=== PATIENT | female | born 1975 | race Caucasian/White ===

== ENCOUNTER 2023-09-30 23:51 | Emergency (ER) | payer OTHER, SELFPAY ==
[2023-10-01 00:13] VITALS: BP 135/95
[2023-10-01 01:17] VITALS: BP 137/95
[2023-10-01 01:43] LABS: % Basophils 1.1 % (0-2); % Eosinophils 0.8 % (0-6); % Immature Granulocytes 0.5 % (0-0.5); % Lymphocytes 16.4 % (20.5-51.1); % Neutrophils 68.2 % (42.2-75.2); Absolute Basophils 0.1 10^3/uL (0-0.2); Absolute Eosinophils 0.1 10^3/uL (0-0.7); Absolute Immature Granulocytes 0.1 10^3/uL (0-0.05); Absolute Lymphocytes 1.6 10^3/uL (1.2-3.4); Absolute Monocytes 1.3 10^3/uL (0.1-0.6); Absolute Neutrophils 6.5 10^3/uL (1.4-6.5); Hematocrit 33.6 % (37.0-47.0); Hemoglobin 11.5 g/dL (12.0-16.0); Mean Corp Hgb Conc. 34.2 g/dL (33.0-37.0); Mean Corpuscular Hgb 36.1 pg (27.0-31.0); Mean Corpuscular Volume 105.3 fL (81.0-99.0); Mean Platelet Volume 9.3 fL (7.4-10.4); Nucleated Red Blood Cells % 0 %; Platelet Count 545 10^3/uL (130-400); Red Blood Cell Count 3.19 10^6/uL (4.20-5.40); White Blood Cell Count 9.6 10^3/uL (4.8-10.8)
[2023-10-01 01:54] LABS: INR 1.04; PT 13.8 Sec (11.4-14.6)
[2023-10-01 01:56] LABS: ALT (SGPT) 47 U/L (0-35); AST (SGOT) 145 U/L (14-36); Albumin 2.6 g/dl (3.5-5.0); Alkaline Phosphatase 269 U/L (38-126); Blood Urea Nitrogen 4 mg/dl (7-17); Calcium 8.3 mg/dl (8.4-10.2); Carbon Dioxide 24 mmol/L (22-30); Chloride 103 mmol/L (98-107); Glucose 103 mg/dl (70-99); Potassium 4.2 mmol/L (3.5-5.1); Sodium 131 mmol/L (135-145); Total Bilirubin 2.3 mg/dl (0.2-1.3); Total Protein 5.6 g/dl (6.3-8.2); eGFR > 60.00
[2023-10-01 02:00] VITALS: BP 138/97
[2023-10-01 02:05] LABS: NT-proBNP 83.2 pg/ml
--- NOTE | 2023-10-01 02:42 | ED.GENMED ---
History of Present Illness
General
Chief Complaint: Swelling
Source: patient, spouse and previous hospital records
Exam Limitations: none
Time Seen by Provider: 10/01/23 02:30
Nursing documentation reviewed up to this point in time: agreed with
Travel History
Have you had any contact with someone who has COVID-19?: No
Do you have any symptoms of coronavirus? Fever > 100 degrees, chills, cough, shortness of breath, sore throat, loss of taste or smell, muscle aches, or headache?: Yes
Symptoms:: cough
History of Present Illness
History of Present Illness:
48-year-old female presents emergency department complaining of increased swelling in her feet and lower legs over the past 2 days. She also reports a moist cough for 3 days. She also reports left outer thigh pain. Recent admission for ascites
where she had paracentesis performed.
Past History
Past History
ED Past Medical History: Other
ED Past Surgical History: Other (Hernia repair )
Social History
Tobacco: Non-smoker
Alcohol: None
Personal:
Living: with family
Employment: Not employed
Review of Systems
Review of Systems
Allergies reviewed?: Yes
All Other Systems: Not applicable
Constitutional: Reports no symptoms
EENT: Reports no symptoms
Respiratory: Reports cough
Cardiac: Reports no symptoms
ABD/GI: Reports other (Abdominal swelling)
: Reports no symptoms
Musculoskeletal: Reports edema
Skin: Reports no symptoms
Neurological: Reports no symptoms
Endocrine: Reports no symptoms
Hematologic/Lymphatic: Reports no symptoms
Psychiatric: Reports no symptoms
Phy Exam
Physical Exam
Physical Exam:
Physical Exam
General: no apparent distress, not acutely ill
Neck: supple. no meningeal signs. normal posterior pharynx
Heart: s1/s2 regular rate and rhythm, no murmur. equal radial
pulses.
HEENT: Pupils equal round reactive to light, EOMI
Lungs: no acute respiratory distress. clear bilaterally
Abdomen: normal bowel sounds. not tender. no CVAT, ascites
Neuro: alert and oriented. no focal neurological deficits cranial nerves II through XII intact
Skin: no rash
Psychiatric: well kept. interactive and cooperative
Extremities: Bilateral lower leg edema. no calf tenderness. negative homans. good distal pulses
Scores
Heart Failure Risk
Heart Failure Risk Score: Not Applicable
Course
Orders/Labs/Results
Orders:
Orders
10/01/23 01:33
CXR2 [CR Chest - 2 Views ] Urgent
Comment:
Reason For Exam: cough
10/01/23 01:36
Complete Blood Count/With Diff Urgent
Comprehensive Metabolic Panel Urgent
NT-proBNP Urgent
Prothrombin Time Urgent
10/01/23 02:41
Lumbar Spine Complete, 4 View [CR Lumbar Spine Comp Min 4 Vw*] Urgent
Comment:
Reason For Exam: low back pain
US Periph Venous LOWER Ext Mateus Urgent
Comment:
Reason For Exam: bilateral leg swelling
10/01/23 05:51
Lidocaine [Lidocaine 4% Patch] 1 patch TOPICAL NOW STA
Abnormal Lab Results
10/01/23
01:36
RBC 3.19 L 10^6/uL
(4.20-5.40)
Hgb 11.5 L g/dL
(12.0-16.0)
Hct 33.6 L %
(37.0-47.0)
MCV 105.3 H fL
(81.0-99.0)
MCH 36.1 H pg
(27.0-31.0)
RDW 15.0 H %
(11.5-14.5)
Plt Count 545 H 10^3/uL
(130-400)
Abs Immat Gran (auto) 0.1 H 10^3/uL
(0-0.05)
Absolute Monos (auto) 1.3 H 10^3/uL
(0.1-0.6)
Lymphocytes % 16.4 L %
(20.5-51.1)
Monocytes % 13.0 H %
(1.7-9.3)
Sodium 131 L mmol/L
(135-145)
BUN 4 L mg/dl
(7-17)
Creatinine 0.3 L mg/dL
(0.6-1.0)
Glucose 103 H mg/dl
(70-99)
Calcium 8.3 L mg/dl
(8.4-10.2)
Total Bilirubin 2.3 H mg/dl
(0.2-1.3)
AST 145 H U/L
(14-36)
ALT 47 H U/L
(0-35)
Alkaline Phosphatase 269 H U/L
(38-126)
Total Protein 5.6 L g/dl
(6.3-8.2)
Albumin 2.6 L g/dl
(3.5-5.0)
10/01/23 01:36
10/01/23 01:36
Vital Signs
Initial and Last Documented VS:
Initial Vital Signs
Temp Pulse Resp BP Pulse Ox
98.3 F 94 20 135/95 97
10/01/23 00:13 10/01/23 00:13 10/01/23 00:13 10/01/23 00:13 10/01/23 00:13
Last Documented Vital Signs
Temp Pulse Resp BP Pulse Ox
98.3 F 86 20 138/97 95
10/01/23 00:13 10/01/23 02:00 10/01/23 00:13 10/01/23 02:00 10/01/23 02:00
MDM/Problems Addressed
Differential Diagnosis Includes:
CHF, DVT, ascites
MDM/Problems Addressed:
48-year-old female with ascites, bilateral lower extremity edema. 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
*Radiology
Radiology exam reviewed: preliminary read by ED provider (Chest x-ray no acute findings, lumbar x-ray no acute findings) and radiology read reviewed (Ultrasound no signs of DVT, possible strain)
*Pulse Oximetry
Patient hypoxic: no
*EKG
Interpreted by ED Provider?: NA
*Slab Installer Interpretation
Rate: Slab Installer- N/A
*Critical Care Note
Total Time (30-74mins, 75-104mins- exclusive of procedures): Not Applicable
Data Reviewed
Further Testing Considered But Not Given:
CT abdomen pelvis not indicated
Patient Management
Social determinants of health affecting care: Living situation and Strong social support
Escalation/DeEscalation of care consider admission/obs:
Admit not indicated
ED Attending Note
-
Portions of this chart may have been created with voice recognition software.� Occasional wrong word or��sound alike� substitutions may have occurred due to the inherent limitations of voice recognition software.
Discharge Plan
Departure
Patient Disposition: Home (Routine Discharge)
Date of Disposition: 10/01/23
Time of Disposition: 05:51
Patient with high blood pressure during this ER visit?: Yes
Condition: Good
Discharge Problem:
Bilateral edema of lower extremity, Elevated LFTs, Ascites
Prescriptions:
No Action
Centrum Adult 50 Plus 80 mcg Tablet,Chewable
2 tab PO DAILY
folic acid 1 mg Tablet
1 mg PO DAILY 30 Days Qty: 30 0RF
Referrals:
Palmer Mock MD [Active] - Call in 1-3 days for appt
Joe Mckinney MD [Family Provider] -
Malia Juan, DO [Active] - Call in 1-3 days for appt
Interventions
Interventions:
*Risk Screen - Suicide Last Done: 10/01/23 00:13
*General Assessment Last Done: 10/01/23 00:13
*Neglect/Abuse Screening Last Done: 10/01/23 00:13
ED- Fall Risk Assessment Last Done: 10/01/23 00:13
*ED COVID-19 Vaccine History Last Done: 10/01/23 00:13
*Nursing Disposition Last Done: 10/01/23 06:27
ED- Cardiac Assessment Last Done: 10/01/23 02:38
ED- Pulmonary Assessment Last Done: 10/01/23 02:38
ED-Skin Assessment Last Done: 10/01/23 02:38
Discharge Date and Time
Discharge Date/Time: 10/01/23 06:28
[2023-10-01] MEDS: LIDOCAINE 4% PATCH 1 PATCH TOPICAL (06:09)
== END 2023-10-01 06:28 | disposition home or self-care (01) ==
LOC: EMR 23:51
PROVIDERS: EMERGENCY PHYSICIAN Emergency Medicine; FAMILY PHYSICIAN Family Medicine
DX: R60.0 Localized edema (principal); R79.89 Other specified abnormal findings of blood chemistry
CPT/HCPCS: 99284; 71046; 72110; 80053; 83880; 85025; 85610; 93970

== ENCOUNTER → 2023-10-16 06:29 | Day surgery (SDC) | payer OTHER, SELFPAY | LOC: GI 06:29 | PROVIDERS: ATTENDING PHYSICIAN Internal Medicine; FAMILY PHYSICIAN Family Medicine | DX: K29.70 Gastritis, unspecified, without bleeding (principal); K74.60 Unspecified cirrhosis of liver; R63.4 Abnormal weight loss; K44.9 Diaphragmatic hernia without obstruction or gangrene; K22.89 Other specified disease of esophagus; K25.9 Gastric ulcer, unspecified as acute or chronic, without hemorrhage or perforation; K31.89 Other diseases of stomach and duodenum | CPT/HCPCS: 43239; 88305; 88342 ==

== ENCOUNTER → 2025-02-04 16:57 | Outpatient (REF) | payer BC, SELFPAY | LOC: RAD 16:57 | PROVIDERS: ATTENDING PHYSICIAN Physician Assistant | DX: R22.30 Localized swelling, mass and lump, unspecified upper limb (principal) | CPT/HCPCS: 76604 ==

== ENCOUNTER 2025-07-11 17:52 | Inpatient (IN) | payer BC, SELFPAY ==
[2025-07-11 11:26] VITALS: BP 100/68
[2025-07-11 12:38] VITALS: BP 118/80
--- NOTE | 2025-07-11 12:39 | ED.GENMED ---
History of Present Illness
<Rustam June PA-C - Last Filed: 07/11/25 16:31>
General
Chief Complaint: Back Pain
Source: patient
Exam Limitations: none
Time Seen by Provider: 07/11/25 12:21
History of Present Illness
History of Present Illness:
49-year-old female presents with worsening lower back pain abdominal distention and jaundice starting 5 or 6 days ago. She follows with GI. She is on spironolactone and Aldactone. She notes that she has a history of a ascites of which required
paracentesis 2 years ago. She denies fever or significant abdominal pain. She denies chest pain or shortness of breath. No other complaint
Past History
<JAYLYN Brewer Last Filed: 07/11/25 16:31>
Past History
ED Past Medical History: Other
ED Past Surgical History: Other (Hernia repair )
Social History
Tobacco: Non-smoker
Alcohol: None
Personal:
Living: with family
Employment: Not employed
Phy Exam
<JAYLYN Brewer Last Filed: 07/11/25 16:31>
Physical Exam
Physical Exam:
General: Jaundiced appearing female no acute respiratory distress HEENT: Normal cephalic atraumatic
Heart tachycardic but regular
Lungs: Clear no wheeze
Abdomen is soft mildly tender distended with positive fluid wave
Skin is jaundiced no rash musculoskeletal exam: Lower lumbar spine is tender Bilaterally
Course
<JAYLYN Brewer Last Filed: 07/11/25 16:31>
Orders/Labs/Results
Orders:
Orders
07/11/25 12:33
US Abdomen Complete/Upper Urgent
Comment:
Reason For Exam: distention, jaundice
07/11/25 12:50
Complete Blood Count/With Diff Urgent
PTT Urgent
Prothrombin Time Urgent
07/11/25 14:07
Electrocardiogram (*1) Urgent
Reason for Study: Abdominal Pain
EKG- Treatment ONCE
07/11/25 14:40
Comprehensive Metabolic Panel Urgent
Urinalysis Reflex To Culture Urgent
Date Specimen was Collected: 07/11/25
Time Specimen was Collected: 13:19
Urine Microscopic Reflex Cult Urgent
Urine Culture Urgent
NAEL Source: U
Specimen Description:
Date Specimen was Collected: 07/11/25
Time Specimen was Collected: 13:19
07/11/25 16:14
Add On- LAB Urgent
Tests Added?: lipase
07/11/25 16:15
Add On- LAB Urgent
Tests Added?: urine sodium, urine OSM, serum osmolality
CefTRIAXone [Rocephin] 1,000 mg IV NOW STA
07/11/25 16:16
Potassium Chloride [KCl] 40 meq 0.9% Sodium Chloride 250 ml [Nss] 250 ml IV NOW
Abnormal Lab Results
07/11/25 07/11/25
12:50 14:40
RBC 2.55 L 10^6/uL
(4.20-5.40)
Hgb 10.2 L g/dL
(12.0-16.0)
Hct 28.6 L %
(37.0-47.0)
MCV 112.2 H fL
(81.0-99.0)
MCH 40.0 H pg
(27.0-31.0)
RDW 16.8 H %
(11.5-14.5)
Abs Immat Gran (auto) 0.1 H 10^3/uL
(0-0.05)
Absolute Neuts (auto) 7.6 H 10^3/uL
(1.4-6.5)
Absolute Monos (auto) 1.5 H 10^3/uL
(0.1-0.6)
Immature Gran % 1.3 H %
(0-0.5)
Lymphocytes % 11.0 L %
(20.5-51.1)
Monocytes % 14.1 H %
(1.7-9.3)
Sodium 124 L mmol/L
(135-145)
Potassium 2.8 L mmol/L
(3.5-5.1)
Chloride 84 L mmol/L
(98-107)
Carbon Dioxide 35 H mmol/L
(22-30)
BUN 4 L mg/dl
(7-17)
Creatinine 0.4 L mg/dL
(0.6-1.0)
Glucose 107 H mg/dl
(70-99)
Total Bilirubin 14.2 H mg/dl
(0.2-1.3)
AST 168 H U/L
(14-36)
ALT 53 H U/L
(0-35)
Alkaline Phosphatase 499 H U/L
(38-126)
Albumin 3.2 L g/dl
(3.5-5.0)
Urine Ketones 2+ A
(Negative)
Ur Occult Blood Reflex 2+ A
(Negative)
Urine Nitrite (Reflex) Positive A
(Negative)
Urine Bilirubin 3+ A
(Negative)
Urine Urobilinogen 4+ A
(Neg - 1+)
Leukocyte Esterase Rfl 2+ A
(Negative)
Urine Bacteria (Reflex) Many A
(Negative)
Urine Albumin (Reflex) 2+ A
(Neg - Trace)
07/11/25 12:50
07/11/25 14:40
Vital Signs
Initial and Last Documented VS:
Initial Vital Signs
Temp Pulse Resp BP Pulse Ox
99.0 F 132 18 100/68 96
07/11/25 11:26 07/11/25 11:26 07/11/25 11:26 07/11/25 11:26 07/11/25 11:26
Last Documented Vital Signs
Temp Pulse Resp BP Pulse Ox
98.2 F 114 22 113/70 94
07/11/25 14:00 07/11/25 16:15 07/11/25 16:15 07/11/25 16:00 07/11/25 16:00
<Michael Coronado, DO - Last Filed: 07/11/25 16:18>
Orders/Labs/Results
Orders:
Orders
07/11/25 12:33
US Abdomen Complete/Upper Urgent
Comment:
Reason For Exam: distention, jaundice
07/11/25 12:50
Complete Blood Count/With Diff Urgent
PTT Urgent
Prothrombin Time Urgent
07/11/25 14:07
Electrocardiogram (*1) Urgent
Reason for Study: Abdominal Pain
EKG- Treatment ONCE
07/11/25 14:40
Comprehensive Metabolic Panel Urgent
Urinalysis Reflex To Culture Urgent
Date Specimen was Collected: 07/11/25
Time Specimen was Collected: 13:19
Urine Microscopic Reflex Cult Urgent
Urine Culture Urgent
NAEL Source: U
Specimen Description:
Date Specimen was Collected: 07/11/25
Time Specimen was Collected: 13:19
07/11/25 16:14
Add On- LAB Urgent
Tests Added?: lipase
07/11/25 16:15
Add On- LAB Urgent
Tests Added?: urine sodium, urine OSM, serum osmolality
CefTRIAXone [Rocephin] 1,000 mg IV NOW STA
07/11/25 16:16
Potassium Chloride [KCl] 40 meq 0.9% Sodium Chloride 250 ml [Nss] 250 ml IV NOW
Abnormal Lab Results
07/11/25 07/11/25
12:50 14:40
RBC 2.55 L 10^6/uL
(4.20-5.40)
Hgb 10.2 L g/dL
(12.0-16.0)
Hct 28.6 L %
(37.0-47.0)
MCV 112.2 H fL
(81.0-99.0)
MCH 40.0 H pg
(27.0-31.0)
RDW 16.8 H %
(11.5-14.5)
Abs Immat Gran (auto) 0.1 H 10^3/uL
(0-0.05)
Absolute Neuts (auto) 7.6 H 10^3/uL
(1.4-6.5)
Absolute Monos (auto) 1.5 H 10^3/uL
(0.1-0.6)
Immature Gran % 1.3 H %
(0-0.5)
Lymphocytes % 11.0 L %
(20.5-51.1)
Monocytes % 14.1 H %
(1.7-9.3)
Sodium 124 L mmol/L
(135-145)
Potassium 2.8 L mmol/L
(3.5-5.1)
Chloride 84 L mmol/L
(98-107)
Carbon Dioxide 35 H mmol/L
(22-30)
BUN 4 L mg/dl
(7-17)
Creatinine 0.4 L mg/dL
(0.6-1.0)
Glucose 107 H mg/dl
(70-99)
Total Bilirubin 14.2 H mg/dl
(0.2-1.3)
AST 168 H U/L
(14-36)
ALT 53 H U/L
(0-35)
Alkaline Phosphatase 499 H U/L
(38-126)
Albumin 3.2 L g/dl
(3.5-5.0)
Urine Ketones 2+ A
(Negative)
Ur Occult Blood Reflex 2+ A
(Negative)
Urine Nitrite (Reflex) Positive A
(Negative)
Urine Bilirubin 3+ A
(Negative)
Urine Urobilinogen 4+ A
(Neg - 1+)
Leukocyte Esterase Rfl 2+ A
(Negative)
Urine Bacteria (Reflex) Many A
(Negative)
Urine Albumin (Reflex) 2+ A
(Neg - Trace)
07/11/25 12:50
07/11/25 14:40
Vital Signs
Initial and Last Documented VS:
Initial Vital Signs
Temp Pulse Resp BP Pulse Ox
99.0 F 132 18 100/68 96
07/11/25 11:26 07/11/25 11:26 07/11/25 11:26 07/11/25 11:26 07/11/25 11:26
Last Documented Vital Signs
Temp Pulse Resp BP Pulse Ox
98.2 F 114 22 113/70 94
07/11/25 14:00 07/11/25 16:15 07/11/25 16:15 07/11/25 16:00 07/11/25 16:00
Dclt;Rustam June PA-C - Last Filed: 07/11/25 16:31>
MDM/Problems Addressed
Differential Diagnosis Includes:
Patient with lower back pain abdominal distention and jaundice.
Review of chart demonstrates unspecified cirrhosis history.
Workup here demonstrates hyponatremia with a sodium of 124. She is hypokalemic with potassium of 2.8. Urinalysis suggests UTI. Patient had an ultrasound of her abdomen which shows severe hepatic steatosis
Will admit to hospital for further evaluation. Clinically she does appear to have some ascites on exam but none was picked up on the ultrasound
<Rustam June PA-C - Last Filed: 07/11/25 16:31>
*Pulse Oximetry
SaO2: 96
Patient hypoxic: no
*Critical Care Note
Total Time (30-74mins, 75-104mins- exclusive of procedures): Not Applicable
ED Attending Note
<Rustam June PA-C - Last Filed: 07/11/25 16:31>
-
Portions of this chart may have been created with voice recognition software.� Occasional wrong word or��sound alike� substitutions may have occurred due to the inherent limitations of voice recognition software.
<Michael Coronado DO - Last Filed: 07/11/25 16:18>
ED Attending Note
Patient seen and examined by attending physician: Yes
I performed the substantive portion of visit, reviewed & personally made and approve the management plan that is documented in note by myself or GAURAV.: Yes
ED Attending Note:
I have seen and evaluated the patient with a [id number] encounter. I have spoken to the advance practicer provider and involved in the medical history, the physical exam, medical decision making.
Evaluation and management service: agree unless noted differently below.
Results interpretation: agree unless noted differently below.
Focused HPI: 49-year-old female presenting for evaluation of enlarging abdomen. Patient is a history of liver disease that required paracentesis 2 years ago. Patient states the jaundice is returning and the distention is returning as well
Physical exam: Jaundice. Abdominal distention without tenderness
Medical Decision Making: Clinically, patient is showing concern for return of ascites. Patient has elevated LFTs but coags within normal limits. Will ultimately admit for worsening liver failure
Discharge Plan
Departure
Patient Disposition: Admit
Date of Disposition: 07/11/25
Time of Disposition: 16:28
Presentation/result/management discussed w/ accepting MD/DO: Hospitalist
Discharge Problem:
Ascites, Acute hyponatremia, Acute hypokalemia
Prescriptions:
No Action
Centrum Adult 50 Plus 80 mcg Tablet,Chewable
2 tab PO DAILY
folic acid 1 mg Tablet
1 mg PO DAILY 30 Days Qty: 30 0RF
Referrals:
Heidy Marcano CRNP [Family Provider, Family Practice]
Interventions
Interventions:
*Risk Screen - Suicide Last Done: 07/11/25 11:29
*General Assessment Last Done: 07/11/25 11:29
*Neglect/Abuse Screening Last Done: 07/11/25 11:29
ED-Musculoskeletal Assessment Last Done: 07/11/25 12:53
Discharge Date and Time
Print Language: GERMAN
[2025-07-11 12:56] LABS: Hematocrit 28.6 % (37.0-47.0); Hemoglobin 10.2 g/dL (12.0-16.0); Mean Corp Hgb Conc. 35.7 g/dL (33.0-37.0); Mean Corpuscular Volume 112.2 fL (81.0-99.0); Nucleated Red Blood Cells % 0.2 %; Platelet Count 277 10^3/uL (130-400); Red Cell Dist. Width 16.8 % (11.5-14.5)
[2025-07-11 13:13] LABS: APTT 30.2 Sec (23.4-35.0); INR 1.05; PT 14.0 Sec (11.4-14.6)
[2025-07-11 14:34] VITALS: BP 118/71
[2025-07-11 14:56] LABS: Urine Character Clear (Clear)
[2025-07-11 15:00] VITALS: BP 122/79
[2025-07-11 15:04] LABS: ALT (SGPT) 53 U/L (0-35); AST (SGOT) 168 U/L (14-36); Albumin 3.2 g/dl (3.5-5.0); Alkaline Phosphatase 499 U/L (38-126); Blood Urea Nitrogen 4 mg/dl (7-17); Calcium 8.6 mg/dl (8.4-10.2); Carbon Dioxide 35 mmol/L (22-30); Chloride 84 mmol/L (98-107); Estimated Creatinine Clearance 102 ml/min; Glucose 107 mg/dl (70-99); Potassium 2.8 mmol/L (3.5-5.1); Sodium 124 mmol/L (135-145); Total Protein 6.6 g/dl (6.3-8.2); Urine Squamous Cell >30 /LPF (Few); eGFR > 60.00
[2025-07-11 15:05] LABS: Urine Red Blood Cell 0-2 /HPF (0-2)
[2025-07-11 16:00] VITALS: BP 113/70
--- NOTE | 2025-07-11 16:32 | HPS.HSE ---
Addendum entered and electronically signed by Nicki Griffith MD 07/11/25 20:39:
urine sodium low, will therefore start NS @ 50 and change follow up labs to [place]
Original Note:
Family Physician
-
Family Physician: SHIVA Aaron
Chief Complaint
-
abdominal distention, jaundice
History of Present Illness
Ms. Cristina Morley is a 49 yo woman with hx anxiety, GERD, alcohol related liver disease presents to the ER with worsening lower back pain, abdominal distention and jaundice.
Patient states she noticed these symptoms on Monday. She has become progressively jaundiced. She was concerned for fluid in the belly as this is how she presented last time. No significant pain. No fevers/chills. No chest pain or shortness of
breath. She is eating and drinking normally, states she drinks a lot of water throughout the day. No significant lower extremity swelling. She's been having normal BM, no diarrhea. No nausea/vomiting.
She has been having lower back pain over the past week. has been applying ice at home. No bowel/bladder changes, no saddle anesthesia. She is maneuvering around the bed without issue during exam. No LE weakness.
Patient stopped drinking heavily. She reports intermittently having a glass of wine, she had one glass on Monday when out to dinner.
She reports burning with urination over the past week.
Medical History
Past Medical History
Past Medical History: Reports Other (alcohol use, tobacco use, HTN, alcoholic hepatitis )
Past Surgical History: Reports Other (hernia repair )
Social History
Tobacco: Non-smoker
Alcohol: Occasional
Family History
Family History: Not pertinent
Allergies / Home Medications
Allergies reflects when Allergies were last updated in [employer].
Home Medications with original date entered in [employer]
Allergy/Medication List:
Allergies
Allergy/AdvReac Type Severity Reaction Status Date / Time
No Known Allergies Allergy Verified 07/11/25 11:28
Home Medications
multivitamin with minerals-folic acid 80 mcg chewable tablet (Centrum Adult 50 Plus) 2 tab PO DAILY Supplement 09/08/23
cholecalciferol (vitamin D3) 25 mcg (1,000 unit) chewable tablet (Vitamin D3) 25 mcg PO DAILY Supplement 07/11/25
furosemide 40 mg tablet (Lasix) 40 mg PO DAILY Fluid Retention/Swelling 07/11/25
propranolol 60 mg capsule,24 hr,extended release 60 mg PO DAILY Heart Disease/Condition 07/11/25
spironolactone 100 mg tablet 50 mg PO DAILY Fluid Retention/Swelling 07/11/25
vitamin A 3,000 mcg (10,000 unit) capsule 3,000 mcg PO DAILY Supplement 07/11/25
Review of Systems
-
History Source: Patient
A 12 point ROS was completed and negative except as noted: Yes
Physical Exam
Vital Signs
Vital Signs
Temp Pulse Resp BP Pulse Ox
98.2 F 114 22 113/70 94
07/11/25 14:00 07/11/25 16:15 07/11/25 16:15 07/11/25 16:00 07/11/25 16:00
Physical Exam
General: No Apparent Distress
HEENT: Other (scleral icterus )
Respiratory: Clear; No Accessory Resp Muscle Use
Cardiac: S1/S2 and Tachycardia
GI: Other (distended, no significant tenderness )
Musculoskeletal: No Edema and Other (no mid-spine tenderness; 5/5 strength LE)
Skin: Warm, Dry and Jaundice
Neuro: AO x 3
Psych: Calm
Laboratory Results
-
07/11/25 12:50
07/11/25 14:40
Laboratory Results
PT 14.0 Sec (11.4-14.6) 07/11/25 12:50
INR 1.05 07/11/25 12:50
APTT 30.2 Sec (23.4-35.0) 07/11/25 12:50
Total Bilirubin 14.2 mg/dl (0.2-1.3) H 07/11/25 14:40
AST 168 U/L (14-36) H 07/11/25 14:40
ALT 53 U/L (0-35) H 07/11/25 14:40
Alkaline Phosphatase 499 U/L (38-126) H 07/11/25 14:40
Data Reviewed
-
Diagnostic Radiology: Report Reviewed by me
Lab Data: Labs Reviewed by me
Impression/Plan
-
Ms. Cristina Morley is a 49 yo woman with hx anxiety, GERD, alcohol related liver disease presents to the ER with worsening lower back pain, abdominal distention and jaundice.
Triage VS: T 99, P 132, RR 18, BP 100/68, SpO2 98%
LABS: WBC 10.5, Hg 10.2, PLT 277, Na 124, K+ 2.8, CO2 35, BUN 4, Cr 0.4, Glucose 107, T. Bili 14.2, AST 168, ALT 53, Alk Phos 499,Albumin 3.2, INR 1.05
UA positive for nitrite, ketones, 6-10 WBC, > 30 squam
RUQ US
IMPRESSION:
Severe hepatic steatosis.
Negative for cholelithiasis. Nonspecific thickening of the gallbladder wall, possibly reactive.
Nonspecific dilatation of the common bile duct up to 11.2 mm. No intraductal stones identified, noting limited visualization. If there is concern for choledocholithiasis or biliary obstruction, consider further evaluation with MRCP.
Elevated Bilirubin
Hx Alcoholic liver disease/alcoholic hepatitis
Dilated CBD 11.2mm
-Discriminant Function 14.2; < 32 no indication for steroids
-no ascites seen on US (confirmed with Dr. Mock)
-discussed abdominal US findings with GI, hold off on MRI for now - OK for regular diet
-formal GI consult tomorrow
-complete alcohol cessation education
Hyponatremia
-patient reports drinking lots of water throughout the day
-awaiting urine studies
-fluid restrict
-hold DISTRIBUTION DESIGNER Aldactone/Lasix
-Nephrology consult
-repeat Na level at 10PM
Hypokalemia
-40mEq IV ordered in ER
-20mEq PO x 1
-repeat K+ level at 10PM and replete further if necessary
-add on Mag
UTI
-patient reports burning on urination. positive nitrite and leuk esterase
-IV Ceftriaxone
-F/U final culture
Low Back Pain
-no midspine tenderness or weakness on exam. related to UTI? versus likely MSK
-IV antibiotics as above
-trial heat pack
Sinus Tachycardia
-continue DISTRIBUTION DESIGNER Propranolol (patient did not take this morning, resume now)
DVT PPx SCD
FULL CODE
76 minutes spent on patient care
[2025-07-11] MEDS: KCL 20 MEQ PO (17:22)
[2025-07-11] MEDS: ROCEPHIN 1000 MG IV (17:23)
[2025-07-11] MEDS: KCL 270 MEQ IV (17:23)
[2025-07-11] MEDS: INDERAL LA 60 MG PO (18:23)
[2025-07-11 19:00] LABS: Lipase 385 U/L (23-300); Magnesium 1.9 mg/dl (1.6-2.3)
[2025-07-11] MEDS: LIDOCAINE 4% PATCH 1 PATCH TOPICAL (21:14)
[2025-07-11] MEDS: NSS 1000 IV (22:14)
--- NOTE | 2025-07-11 22:31 | PTCARENOTE ---
pt brought up from ED via stretcher. pt ambulated to bed with assistance from staff. patient AOx3. assessment completed. tele monitor placed. oriented to room. call doran within reach. when asked if the patient had fallen in the last 3 months patient
stated yes. patient informed of the need for bed alarm due to history of fall. patient refused bed alarm. patient educated on the importance of bed alarm. patient continued to refuse. education reinforced. POC ongoing.
[2025-07-11] MEDS: TORADOL 15 MG IV (23:00)
[2025-07-11 23:10] VITALS: BP 91/58
[2025-07-12] VITALS (11 sets, daily range): BP systolic 82–128; BP diastolic 42–80
[2025-07-12 00:52] LABS: Potassium 3.4 mmol/L (3.5-5.1); Sodium 128 mmol/L (135-145)
[2025-07-12 00:52] LABS: Hematocrit 24.2 % (37.0-47.0); Hemoglobin 8.2 g/dL (12.0-16.0); Mean Corp Hgb Conc. 33.9 g/dL (33.0-37.0); Mean Corpuscular Volume 114.2 fL (81.0-99.0); Nucleated Red Blood Cells % 0.3 %; Platelet Count 211 10^3/uL (130-400); Red Cell Dist. Width 17.0 % (11.5-14.5)
[2025-07-12] MEDS: NSS 250 IV (01:06)
--- NOTE | 2025-07-12 03:24 | PTCARENOTE ---
patient temperature 101.1. WOOD FLOORING SPECIALIST Tejal Germain notified. new orders for Toradol placed. See MAR for administration. when rechecked pt temperature was 99.9. WOOD FLOORING SPECIALIST messaged this RN later asking how pt was doing. patient was resting at the time and this RN
reported improvement in temperature. WOOD FLOORING SPECIALIST asked what the patients blood pressure was. blood pressure from 2300 VS was 91/58. this RN rechecked a manual blood pressure for 86/42. pt asymptomatic. WOOD FLOORING SPECIALIST came to bedside to assess pt. new orders placed
for IV bolus, see MAR for administration. WOOD FLOORING SPECIALIST added CBC to 0000 lab draw. temp and blood pressure from 0300 VS 97.8 and 128/63.
[2025-07-12 07:51] LABS: Hematocrit 25.1 % (37.0-47.0); Hemoglobin 8.7 g/dL (12.0-16.0); Mean Corp Hgb Conc. 34.7 g/dL (33.0-37.0); Mean Corpuscular Volume 116.2 fL (81.0-99.0); Nucleated Red Blood Cells % 0.2 %; Platelet Count 228 10^3/uL (130-400); Red Cell Dist. Width 17.1 % (11.5-14.5)
[2025-07-12] MEDS: LIDOCAINE 4% PATCH 1 PATCH TOPICAL (07:53)
[2025-07-12] MEDS: DESENEX/MITRAZOL/ZEASORB 1 APPLIC TOPICAL ×2 (07:54→20:14)
[2025-07-12 07:55] LABS: INR 1.13; PT 14.8 Sec (11.4-14.6)
[2025-07-12] MEDS: INDERAL LA PO (07:57)
[2025-07-12 08:26] LABS: ALT (SGPT) 43 U/L (0-35); AST (SGOT) 127 U/L (14-36); Albumin 2.5 g/dl (3.5-5.0); Alkaline Phosphatase 389 U/L (38-126); Blood Urea Nitrogen 4 mg/dl (7-17); Calcium 7.8 mg/dl (8.4-10.2); Carbon Dioxide 32 mmol/L (22-30); Chloride 90 mmol/L (98-107); Estimated Creatinine Clearance 102 ml/min; Glucose 99 mg/dl (70-99); Magnesium 1.8 mg/dl (1.6-2.3); Potassium 3.2 mmol/L (3.5-5.1); Sodium 127 mmol/L (135-145); Total Protein 5.4 g/dl (6.3-8.2); eGFR > 60.00
--- NOTE | 2025-07-12 09:07 | PTCARENOTE ---
Pt c/o chronic pain in lower back that is worse than usual, MD and resident made aware, new order provided, see MAR.
[2025-07-12] MEDS: TYLENOL 325 MG PO ×2 (09:08→20:13)
[2025-07-12] MEDS: KCL 270 MEQ IV (09:45)
[2025-07-12 11:22] LABS: Cortisol, Random 20.9 ug/dl
--- NOTE | 2025-07-12 11:50 | PTCARENOTE ---
Blood pressure decreased, manual=82/46, pt asymptomatic, no complaints of lightheadedness or dizziness. MD and resident made aware.
--- NOTE | 2025-07-12 13:32 | CON.GI ---
Consultation
-
Date/Time Consultation Requested: 07/12/2025
Date/Time Consultation Performed: 07/12/2025
Performing Provider: Max Tellez
Reason for Consultation: jaundice
Medical History
Chief Complaint / HPI
Chief Complaint: jaundice
History of Present Illness:
The patient is a 49 year old female with h/o anxiety, GERD, alcohol induced cirrhosis and prior alcoholic hepatitis who p/w worsening lower back pain, abdominal distention and jaundice. Noticed worsening abdominal distention and scleral icterus for
past week or so. She drinks intermittently, glass of wine or so.
Past Medical History
Past Medical History: Other
Past Surgical History: Other
Social History
Tobacco: Non-Smoker
Alcohol: Occasional
Allergies / Home Medications
Allergy/AdvReac Type Severity Reaction Status Date / Time
No Known Allergies Allergy Verified 07/11/25 11:28
�Medication �Instructions �Recorded
multivitamin with minerals-folic 2 tab PO DAILY Supplement 09/08/23
acid 80 mcg chewable tablet
(Centrum Adult 50 Plus)
cholecalciferol (vitamin D3) 25 25 mcg PO DAILY Supplement 07/11/25
mcg (1,000 unit) chewable tablet
(Vitamin D3)
furosemide 40 mg tablet (Lasix) 40 mg PO DAILY Fluid 07/11/25
Retention/Swelling
propranolol 60 mg capsule,24 60 mg PO DAILY Heart 07/11/25
hr,extended release Disease/Condition
spironolactone 100 mg tablet 50 mg PO DAILY Fluid 07/11/25
Retention/Swelling
vitamin A 3,000 mcg (10,000 unit) 3,000 mcg PO DAILY Supplement 07/11/25
capsule
Review of Systems
Vital Signs
Temp Pulse Resp BP Pulse Ox
98.5 F 88 20 90/60 98
07/12/25 12:06 07/12/25 12:06 07/12/25 12:06 07/12/25 13:05 07/12/25 12:06
Physical Exam
Exam
General: Well Developed and Well Nourished
HEENT: Normocephalic and Other (icteric)
Respiratory: Clear
Cardiac: S1/S2
GI: Soft, Non Tender, Normal Bowel Sounds and Distended
Results
WBC 8.7 10^3/uL (4.8-10.8) 07/12/25 06:37
Hgb 8.7 g/dL (12.0-16.0) L 07/12/25 06:37
Hct 25.1 % (37.0-47.0) L 07/12/25 06:37
MCV 116.2 fL (81.0-99.0) H 07/12/25 06:37
Plt Count 228 10^3/uL (130-400) 07/12/25 06:37
Absolute Neuts (auto) 6.4 10^3/uL (1.4-6.5) 07/12/25 06:37
PT 14.8 Sec (11.4-14.6) H 07/12/25 06:37
INR 1.13 07/12/25 06:37
APTT 30.2 Sec (23.4-35.0) 07/11/25 12:50
Sodium 127 mmol/L (135-145) L 07/12/25 06:37
Potassium 3.2 mmol/L (3.5-5.1) L 07/12/25 06:37
Chloride 90 mmol/L (98-107) L 07/12/25 06:37
Carbon Dioxide 32 mmol/L (22-30) H 07/12/25 06:37
BUN 4 mg/dl (7-17) L 07/12/25 06:37
Creatinine 0.5 mg/dL (0.6-1.0) L 07/12/25 06:37
Calcium 7.8 mg/dl (8.4-10.2) L 07/12/25 06:37
Total Bilirubin 13.1 mg/dl (0.2-1.3) H 07/12/25 06:37
AST 127 U/L (14-36) H 07/12/25 06:37
ALT 43 U/L (0-35) H 07/12/25 06:37
Alkaline Phosphatase 389 U/L (38-126) H 07/12/25 06:37
Lipase 385 U/L (23-300) H 07/11/25 14:40
Diagnostic Image Results:
Prior GI Procedures:
EGD:
Colonoscopy:
Assessment / Plan
-
49 year old female with h/o anxiety, GERD, alcohol induced cirrhosis and prior alcoholic hepatitis who p/w worsening lower back pain, abdominal distention and jaundice.
Impression / Rec:
1. Abdominal distention/jaundice - known alcohol induced cirrhosis. Has h/o alcoholic hepatitis in 2023. Suspect alcoholic hepatitis. Her presentation is nearly identical to her admission in 2023. She admits to drinking alcohol (glass of wine),
although she seldom drinks. AST/ALT elevation, bili 14.2 on admission. DF < 32, no need for steroids. She c/o significant abdominal distention, distended on exam, non-tender, percussion +ve for fluid. Abdo US yesterday reported no GB
stone/sludge, 11.2 mm CBD, no report of ascites. Clinically she appears to have ascites, will get CT abd/pel. If ascites present, will need diagnostic/therapeutic paracentesis. Temp 101.1 on admission, urine cx in progress. Had lengthy
discussion re: the need for absolute abstinence from alcohol. Ok for diet.
Total Time Spent with Patient (in minutes): 55
-
-
Thank you for consultation and allowing me to participate in the patient's care. Please call the [facility] GI physician during the after hours with any questions or concerns.
--- NOTE | 2025-07-12 13:57 | W.PN.HOSP.TC ---
Addendum entered and electronically signed by Hemalatha Caicedo MD 07/12/25 14:38:
I saw and evaluated the patient independently. I reviewed and discussed the resident�s note and agree with findings and plan as documented by Dr. Farr.
GENERAL: cachectic female in no apparent distress--jaundiced
HEENT: NC/AT--scleral icterus
HEART: regular rate and rhythm, +S1, +S2
LUNGS : clear to auscultation bilaterally
ABDOM: soft, nontender, distended, + bowel sounds
EXT: no cyanosis, clubbing, or edema
NEUROLOGIC: grossly intact
Cholestatic liver pattern due to cirrhosis from prior chronic alcohol abuse--with electrolyte abnormalities--US with dilated CBD--await CT scan per GI--apprec input--elevated total bilirubin of 13.1, direct bilirubin of 11.2, 2:1 ratio of AST to
ALT, alkaline phosphatase 39, lipase of 385--may need paracentesis--must stop ALL alcohol--cont 2 gm sodium diet with fluid restriction- Continue home propranolol 60 mg--empiric IV ceftriaxone as a secondary prophylaxis spontaneous bacterial
peritonitis--consideration for starting lactulose although mental status clear
Hyponatremia/ hypokalemia--due to liver cirrhosis,disease--await renal input--follow and replete potassium as needed--cont lasix/aldactone if BP allows
UTI--patient reports burning on urination. positive nitrite and leuk esterase--This was not a clean-catch sample as there are more than 30 squamous epithelial cells, so we will repeat urine analysis with reflex culture--cont IV Ceftriaxone
Low Back Pain- Most likely musculoskeletal--Continue with lidocaine 4% patch as instructed and low-dose Tylenol.
Sinus Tachycardia -continue STOCK BROKER Propranolol (patient did not take this morning, resume now)
DVT Proph-- SCD
code status--FULL CODE
Original Note:
Today's Communication/Plan
-
- f/u GI, await CT, trend CMP every 12 hours, await results of UA
Assessment / Plan
Assessment / Plan
Cholestatic liver pattern due to cirrhosis from prior chronic alcohol abuse:
-Patient's initial presenting complaints were abdominal distention, increasing jaundice in her eyes and all over the body, worsening lower back pain. Had a temp of 101 point admission. Had previous similar complaints in 2018 where she required a
paracentesis.
- Cholestatic liver pattern due to elevated total bilirubin of 13.1, direct bilirubin of 11.2, 2:1 ratio of AST to ALT, alkaline phosphatase 39, lipase of 385
- Physical exam shows distended abdomen with positive fluid wave, icteric sclera and jaundice all over body, with cachectic habitus
- Right upper quadrant abdominal ultrasound done which showed severe hepatic steatosis negative for cholelithiasis, dilatation of common bile duct up to 11.2 mm with no intraductal stones identified. According to an informal consult with
nurse first assist on 07/11/2025 no ascites was noted.
-complete alcohol cessation education
- Gastroenterology saw patient today on 07/12/[address] abdomen pelvis and if ascites present will need diagnostic/paracentesis.
- Started patient on 2 g sodium diet
- Continue home propranolol 60 mg.
- Continue with empiric IV ceftriaxone as a secondary prophylaxis spontaneous bacterial peritonitis
- Will order an ammonia level then decide on whether or not to order lactulose, GI would not like to start lactulose now
- PT/OT ordered
- D/c fluids as we would like to fluid restrict patient
Hyponatremia/ hypokalemia:
- Today sodium is 127 and potassium is 3.2. Repleted potassium with 40 mg IV rider.
- fluid restrict, dc'd fluids
- hold home dose Aldactone/Lasix to prevent urinary loss of potassium and sodium thus further worsening electrolyte abnormalities.
- Nephrology consult
- repeat Na level at 10PM
- Will order a magnesium level in the morning
- Trend CMP every 12 hours
UTI:
-patient reports burning on urination. positive nitrite and leuk esterase
-This was not a clean-catch sample as there are more than 30 squamous epithelial cells, so we will repeat urine analysis with reflex culture
-IV Ceftriaxone
- Awaiting urine culture
Low Back Pain:
- Most likely musculoskeletal as no midspine tenderness or weakness on exam
- Continue with lidocaine 4% patch as instructed and low-dose Tylenol.
Sinus Tachycardia
-continue STOCK BROKER Propranolol (patient did not take this morning, resume now)
DVT PPx SCD
FULL CODE
Anticipated Discharge: 24 - 48 hours
Subjective/Interval History
-
Date of Service: July 12, 2025
No acute overnight events.
Patient is complaining of lower back pain, abdominal distention, and jaundice on review of systems. No headache, dizziness, nausea, vomiting, diarrhea, abdominal pain, constipation, lightheadedness, syncope, numbness, swelling, weakness, visual
changes.
Objective Data
-
Labs:
Laboratory Results
07/12/25
06:37
WBC 8.7
Hgb 8.7 L
Hct 25.1 L
Plt Count 228
PT 14.8 H
INR 1.13
Sodium 127 L
Potassium 3.2 L
Chloride 90 L
Carbon Dioxide 32 H
BUN 4 L
Creatinine 0.5 L
Glucose 99
Calcium 7.8 L
Total Bilirubin 13.1 H
AST 127 H
ALT 43 H
Alkaline Phosphatase 389 H
Vital Signs:
Vital Signs
Temp Pulse Resp BP Pulse Ox
98.5 F 88 20 90/60 98
07/12/25 12:06 07/12/25 12:06 07/12/25 12:06 07/12/25 13:05 07/12/25 12:06
I&O
07/11/25 07/12/25 07/13/25
06:59 06:59 06:59
Intake Total 1030 / 1030
Balance 1030 / 1030
Review of Systems
-
History Source: Patient
All other systems: Reviewed and negative
Physical Exam
-
General: Cachectic
HEENT: Normocephalic, Atraumatic, Moist Mucous Membranes and Other (Icteric sclera and jaundice present over all over body)
Respiratory: Clear to Auscultation
Cardiac: Regular Rhythm and S1/S2; Negative Murmur, Rub or Gallop
GI: Soft, Nontender, Normal Bowel Sounds, Distended and Other (Positive fluid wave); Negative Organomegaly
Rectal: Deferred by Provider
Musculoskeletal: No Clubbing, No Cyanosis and No Edema
Skin: Warm and Jaundice; Negative Rash
Neuro: AO x 3
Psych: Calm
Data Reviewed
-
Ultrasound: Report Reviewed by me and Discussed with Physician
Labs: Labs Reviewed by me and Discussed with Physician
--- NOTE | 2025-07-12 14:22 | W.CON.NEPH ---
Consultation
-
Date/Time Consultation Requested: July 11, 2025 at 1700
Date/Time Consultation Performed: July 12, 2025 at 1 PM
Requesting Provider: Nicki Griffith
Performing Provider: Dr. Sweeney
Reason for Consultation: Hyponatremia
Medical History
-
Chief Complaint: Hyponatremia
History of Present Illness:
49 yo woman with hx anxiety, GERD, alcohol related liver disease presents to the ER with worsening lower back pain, abdominal distention and jaundice.
Patient states she noticed these symptoms on Monday. She has become progressively jaundiced and increasing abdominal girth she has had paracentesis x 1 in the past she is still drinking but less apparently. She is drinking a lot of water as well.
Renal consultation for hyponatremia of 124 was placed on a fluid restriction and IV fluids with improvement to 128.
She is jaundiced and has abdominal distention no nausea or vomit
Past Medical History
Hx anxiety, GERD, alcohol related liver disease
Social History
Tobacco: Non-Smoker
Alcohol: Daily
Family History
Family History: Not Pertinent
Allergies / Home Medications
Allergy/AdvReac Type Severity Reaction Status Date / Time
No Known Allergies Allergy Verified 07/11/25 11:28
�Medication �Instructions �Recorded �Confirmed �Type
multivitamin with minerals-folic 2 tab PO DAILY Supplement 09/08/23 07/11/25 History
acid 80 mcg chewable tablet
(Centrum Adult 50 Plus)
cholecalciferol (vitamin D3) 25 25 mcg PO DAILY Supplement 07/11/25 07/11/25 History
mcg (1,000 unit) chewable tablet
(Vitamin D3)
furosemide 40 mg tablet (Lasix) 40 mg PO DAILY Fluid 07/11/25 07/11/25 History
Retention/Swelling
propranolol 60 mg capsule,24 60 mg PO DAILY Heart 07/11/25 07/11/25 History
hr,extended release Disease/Condition
spironolactone 100 mg tablet 50 mg PO DAILY Fluid 07/11/25 07/11/25 History
Retention/Swelling
vitamin A 3,000 mcg (10,000 unit) 3,000 mcg PO DAILY Supplement 07/11/25 07/11/25 History
capsule
Review of Systems
-
Abdominal swelling
All other systems: Negative unless noted
Physical Exam
Vital Signs
Vital Signs
Temp Pulse Resp BP Pulse Ox
98.5 F 88 20 90/60 98
07/12/25 12:06 07/12/25 12:06 07/12/25 12:06 07/12/25 13:05 07/12/25 12:06
Lab Results
WBC 8.7 10^3/uL (4.8-10.8) 07/12/25 06:37
RBC 2.16 10^6/uL (4.20-5.40) L 07/12/25 06:37
Hgb 8.7 g/dL (12.0-16.0) L 07/12/25 06:37
Hct 25.1 % (37.0-47.0) L 07/12/25 06:37
Plt Count 228 10^3/uL (130-400) 07/12/25 06:37
Sodium 127 mmol/L (135-145) L 07/12/25 06:37
Potassium 3.2 mmol/L (3.5-5.1) L 07/12/25 06:37
Chloride 90 mmol/L (98-107) L 07/12/25 06:37
Carbon Dioxide 32 mmol/L (22-30) H 07/12/25 06:37
BUN 4 mg/dl (7-17) L 07/12/25 06:37
Creatinine 0.5 mg/dL (0.6-1.0) L 07/12/25 06:37
eGFR > 60.00 07/12/25 06:37
Glucose 99 mg/dl (70-99) 07/12/25 06:37
Calcium 7.8 mg/dl (8.4-10.2) L 07/12/25 06:37
Albumin 2.5 g/dl (3.5-5.0) L 07/12/25 06:37
Physical Exam
General no acute distress
HEENT no cephalic atraumatic extraocular muscle intact positive scleral icterus no JVD neck supple
lungs clear to auscultation bilateral
heart regular S1-S2 positive
abdomen distended nontender
extremities no edema pulses present bilateral
Neurologically nonfocal alert and oriented x 3
Skin no lesions no abrasions no petechiae
Psych normal affect no bizarre behavior
Data Reviewed
-
Ultrasound: Image Personally Visualized and interpreted
Labs: Labs Reviewed by me, Discussed with Physician, Discussed with Nurse and Discussed with Patient
Assessment/Plan
-
49 yo woman with hx anxiety, GERD, alcohol related liver disease presents to the ER with worsening lower back pain, abdominal distention and jaundice.
Patient states she noticed these symptoms on Monday. She has become progressively jaundiced and increasing abdominal girth she has had paracentesis x 1 in the past she is still drinking but less apparently. She is drinking a lot of water as well.
Renal consultation for hyponatremia of 124 was placed on a fluid restriction and IV fluids with improvement to 128.
Impression.
Hyponatremia multifactorial liver cirrhosis hypotension increased ADH superimposed with increased water intake
Liver cirrhosis
Fever
Anemia of chronic disease
Plan.
Urine sodium 6/urine osmolality 380
Discontinue IV
No indication for 3% saline or Samsca at this time will continue to trend
Plus minus paracentesis / GI note
Antibiotics for fever= urine culture
Will add midodrine
[2025-07-12 15:48] LABS: Urine Character Slightly Cloudy (Clear)
[2025-07-12] MEDS: STERILE WATER FOR INJECTION 10 ML IV (17:45)
[2025-07-12] MEDS: ROCEPHIN 1000 MG IV (17:45)
[2025-07-12] MEDS: INDERAL LA 60 MG PO (20:12)
[2025-07-12] MEDS: REMOVE LIDOCAINE PATCH 1 PATCH REMOVE (20:15)
[2025-07-13] VITALS (7 sets, daily range): BP systolic 83–125; BP diastolic 56–73
[2025-07-13] MEDS: LIDOCAINE 4% PATCH TOPICAL (07:57)
[2025-07-13] MEDS: DESENEX/MITRAZOL/ZEASORB 1 APPLIC TOPICAL ×2 (07:58→20:25)
[2025-07-13] MEDS: TYLENOL 325 MG PO ×2 (08:01→23:32)
--- NOTE | 2025-07-13 08:04 | PTCARENOTE ---
Pt r/o loose stools since antibiotic administered, MD & resident made aware.
[2025-07-13] MEDS: VISBIOME 1 CAP PO (10:49)
[2025-07-13 10:55] LABS: Ammonia 51 umol/L (9-30)
[2025-07-13 10:56] LABS: ALT (SGPT) 45 U/L (0-35); AST (SGOT) 114 U/L (14-36); Albumin 2.8 g/dl (3.5-5.0); Alkaline Phosphatase 379 U/L (38-126); Blood Urea Nitrogen 5 mg/dl (7-17); Calcium 8.4 mg/dl (8.4-10.2); Carbon Dioxide 30 mmol/L (22-30); Chloride 95 mmol/L (98-107); Estimated Creatinine Clearance 102 ml/min; Glucose 117 mg/dl (70-99); Magnesium 1.9 mg/dl (1.6-2.3); Potassium 3.9 mmol/L (3.5-5.1); Sodium 127 mmol/L (135-145); Total Protein 6.1 g/dl (6.3-8.2); eGFR > 60.00
[2025-07-13 10:58] LABS: Hematocrit 28.7 % (37.0-47.0); Hemoglobin 9.6 g/dL (12.0-16.0); Mean Corp Hgb Conc. 33.4 g/dL (33.0-37.0); Mean Corpuscular Volume 119.1 fL (81.0-99.0); Nucleated Red Blood Cells % 0 %; Platelet Count 287 10^3/uL (130-400); Red Cell Dist. Width 16.3 % (11.5-14.5)
[2025-07-13] MEDS: TORADOL 30 MG IV (12:18)
[2025-07-13] MEDS: FLUSH (NSS) 2 FLUSH IV ×2 (12:19→17:42)
--- NOTE | 2025-07-13 13:32 | CM ---
Patient seen at bedside
IA completed
CM consult completed-Information given on Advanced Directives
Lives with in a 2 story home, 2 [place], flight to bed/bath
PLOF: Independent
Denies DME
Denies insecurities
Denies VN/Rehab
PCP: Heidy Marcano
Pharmacy: [address], [place]
PLAN: Home, no needs when stable
--- NOTE | 2025-07-13 13:56 | W.PN.NEPH.PH ---
Today's Communication / Plan
-
Samsca
Increase midodrine
Assessment/Plan
-
49 yo woman with hx anxiety, GERD, alcohol related liver disease presents to the ER with worsening lower back pain, abdominal distention and jaundice.
Patient states she noticed these symptoms on Monday. She has become progressively jaundiced and increasing abdominal girth she has had paracentesis x 1 in the past she is still drinking but less apparently. She is drinking a lot of water as well.
Renal consultation for hyponatremia of 124 was placed on a fluid restriction and IV fluids with improvement to 128.
Impression.
Hyponatremia multifactorial liver cirrhosis hypotension increased ADH superimposed with increased water intake
Liver cirrhosis
Fever
Anemia of chronic disease
Plan.
Urine sodium 6/urine osmolality 380
Plus minus paracentesis / GI note
Antibiotics for fever= urine culture
added midodrine 07/12.. inc dose to 10 mg tid
samsca x 1 today
-
-
Date of Service: July 13, 2025
CC / HPI / ROS
-
Chief Complaint:
Liver cirrhosis
History of Present Illness:
Hyponatremia hypotension sodium 124
Review of Systems:
No chest pain or shortness of breath
Labs
-
Labs:
WBC 11.7 10^3/uL (4.8-10.8) H 07/13/25 10:17
RBC 2.41 10^6/uL (4.20-5.40) L 07/13/25 10:17
Hgb 9.6 g/dL (12.0-16.0) L 07/13/25 10:17
Hct 28.7 % (37.0-47.0) L 07/13/25 10:17
Plt Count 287 10^3/uL (130-400) D 07/13/25 10:17
Sodium 127 mmol/L (135-145) L 07/13/25 10:17
Potassium 3.9 mmol/L (3.5-5.1) 07/13/25 10:17
Chloride 95 mmol/L (98-107) L 07/13/25 10:17
Carbon Dioxide 30 mmol/L (22-30) 07/13/25 10:17
BUN 5 mg/dl (7-17) L 07/13/25 10:17
Creatinine 0.4 mg/dL (0.6-1.0) L 07/13/25 10:17
eGFR > 60.00 07/13/25 10:17
Glucose 117 mg/dl (70-99) H 07/13/25 10:17
Calcium 8.4 mg/dl (8.4-10.2) 07/13/25 10:17
Albumin 2.8 g/dl (3.5-5.0) L 07/13/25 10:17
Physical Exam
-
Vital Signs:
Vital Signs
Temp Pulse Resp BP Pulse Ox
99 F 86 21 107/65 97
07/13/25 12:41 07/13/25 12:41 07/13/25 12:41 07/13/25 12:41 07/13/25 12:41
Respiratory:: Bilateral: CTA
Abdomen:: Distended
Bowel Sounds:: Normal
Extremity Edema:: None: Bilateral:
--- NOTE | 2025-07-13 14:03 | PTOTSP ---
Patient independent with transfers, ambulation and elevations with use of railing.
Educated and performed wall sags for low back pain; reports decreased pain symptoms post therex. Educated on performance throughout the day for continued carry over as well as outpatient follow up if needed.
Does not demonstrate continued need for skilled therapy at this time; will discharge. If needs change, please re-consult.
--- NOTE | 2025-07-13 14:03 | W.PN.HOSP.TC ---
Addendum entered and electronically signed by Hemalatha Caicedo MD 07/13/25 14:33:
I saw and evaluated the patient independently. I reviewed and discussed the resident�s note and agree with findings and plan as documented by Dr. Farr.
GENERAL: cachectic female in no apparent distress--jaundiced
HEENT: NC/AT--scleral icterus
HEART: regular rate and rhythm, +S1, +S2
LUNGS : clear to auscultation bilaterally
ABDOM: soft, nontender, distended and mostly due to hepatomegaly, + bowel sounds--no fluid wave to indicated ascites
EXT: no cyanosis, clubbing, or edema
NEUROLOGIC: grossly intact
Cholestatic liver pattern due to cirrhosis from prior chronic alcohol abuse--with electrolyte abnormalities--US with dilated CBD--CT scan moderate hepatomegaly and progressed hepatic fatty infiltration along with cirrhosis--apprec GI--Tbili remains
high--must stop ALL alcohol--cont 4gm diet with 1000ml fluid restriction- Continue home propranolol 60 mg--empiric IV ceftriaxone as a secondary prophylaxis spontaneous bacterial peritonitis--consideration for starting lactulose although mental
status clear but ammonia level in 50s
Hyponatremia/ hypokalemia--due to liver cirrhosis--apprec renal input--follow and replete potassium as needed--cont lasix/aldactone if BP allows--midodrine being started
UTI--patient reports burning on urination-- not a clean-catch sample as there are more than 30 squamous epithelial cells but culture with 100K E. coli, repeat urine culture no growth--cont IV Ceftriaxone--probiotic started
Low Back Pain- Most likely musculoskeletal--Continue with lidocaine 4% patch as instructed and low-dose Tylenol.
Sinus Tachycardia -continue Propranolol --resolved
DVT Proph-- SCD
code status--FULL CODE
Original Note:
Today's Communication/Plan
-
- f/u with GI
Assessment / Plan
Assessment / Plan
Cholestatic liver pattern due to cirrhosis from prior chronic alcohol abuse:
-Patient's initial presenting complaints were abdominal distention, increasing jaundice in her eyes and all over the body, worsening lower back pain. Had a temp of 101 point admission. Had previous similar complaints in 2018 where she required a
paracentesis.
- Cholestatic liver pattern due to elevated total bilirubin of 13.1, direct bilirubin of 11.2, 2:1 ratio of AST to ALT, alkaline phosphatase 39, lipase of 385
- Physical exam shows distended abdomen with positive fluid wave, icteric sclera and jaundice all over body, with cachectic habitus
- Right upper quadrant abdominal ultrasound done which showed severe hepatic steatosis negative for cholelithiasis, dilatation of common bile duct up to 11.2 mm with no intraductal stones identified. According to an informal consult with
validation leader on 07/11/2025 no ascites was noted.
-complete alcohol cessation education
- Started patient on 2 g sodium diet
- Continue home propranolol 60 mg.
- Continue with empiric IV ceftriaxone as a secondary prophylaxis spontaneous bacterial peritonitis
- Ammonia level is 50 but patient has no asterixis or altered mental status. However, she does have cirrhosis but will hold off on lactulose after discussion with GI.
- CT scan shows mild abdominopelvic ascites, moderate hepatomegaly, hepatic fatty, nodular hepatic margin consistent with her history of cirrhosis, will see how GI wants to proceed
- PT/OT ordered
- D/c fluids as we would like to fluid restrict patient
Hyponatremia/ hypokalemia:
- potassium 3.9 and normal today.
- fluid restrict, dc'd fluids
- hold home dose Aldactone/Lasix to prevent urinary loss of potassium and sodium thus further worsening electrolyte abnormalities.
- Nephrology consult and wants to fluid restrict, plus they have added midodrine5 mg TID for her orthostatic hypotension
- Will order a magnesium level in the morning, today magnesium level is normal at 1.9
- Trend CMP every 12 hours
UTI:
-patient reports burning on urination. positive nitrite and leuk esterase
-New urine analysis shows urine ketones 2+ positive, urine occult blood reflex 2+, urine nitrate positive, urine bilirubin 3+, urine urobilinogen 4+, leukocyte esterase 2+, urine RBC 3-6 per high-power field, urine WBC 6-10, urine bacteria few
- Initial urine culture shows E coli and repeat urine culture is negative
- Continue on IV Ceftriaxone
Low Back Pain:
- Most likely musculoskeletal as no midspine tenderness or weakness on exam
- Continue with lidocaine 4% patch as instructed and low-dose Tylenol.
- Will add on IV ketorolac
Sinus Tachycardia
-continue [employer] Propranolol (patient did not take this morning, resume now)
DVT PPx SCD
FULL CODE
Anticipated Discharge: 24 - 48 hours
Subjective/Interval History
-
Date of Service: July 13, 2025
No acute overnight events.
Patient is complaining of lower back pain. No abdominal pain, headache, dizziness, nausea, vomiting, diarrhea, abdominal pain, constipation, lightheadedness, syncope, numbness, swelling, weakness, visual changes.
Objective Data
-
Labs:
Laboratory Results
07/13/25
10:17
WBC 11.7 H
Hgb 9.6 L
Hct 28.7 L
Plt Count 287 D
Sodium 127 L
Potassium 3.9
Chloride 95 L
Carbon Dioxide 30
BUN 5 L
Creatinine 0.4 L
Glucose 117 H
Calcium 8.4
Total Bilirubin 13.7 H
AST 114 H
ALT 45 H
Alkaline Phosphatase 379 H
Vital Signs:
Vital Signs
Temp Pulse Resp BP Pulse Ox
99 F 86 21 107/65 97
07/13/25 12:41 07/13/25 12:41 07/13/25 12:41 07/13/25 12:41 07/13/25 12:41
I&O
07/12/25 07/13/25 07/14/25
06:59 06:59 06:59
Intake Total 1030 / 1030 1530 / 1530
Balance 1030 / 1030 1530 / 1530
Review of Systems
-
History Source: Patient
All other systems: Reviewed and negative
Physical Exam
-
General: Cachectic
HEENT: Normocephalic, Atraumatic, Moist Mucous Membranes and Other (Icteric sclera and jaundice present over all over body)
Respiratory: Clear to Auscultation
Cardiac: Regular Rhythm and S1/S2; Negative Murmur, Rub or Gallop
GI: Soft, Nontender, Normal Bowel Sounds, Distended and Other (Positive fluid wave); Negative Organomegaly
Rectal: Deferred by Provider
Musculoskeletal: No Clubbing, No Cyanosis and No Edema
Skin: Warm and Jaundice; Negative Rash
Neuro: AO x 3
Psych: Calm
Data Reviewed
-
Ultrasound: Report Reviewed by me and Discussed with Physician
Labs: Labs Reviewed by me and Discussed with Physician
[2025-07-13] MEDS: SAMSCA 30 MG PO (14:45)
--- NOTE | 2025-07-13 15:10 | W.PN.GI.CBS2 ---
Today's Communication / Plan
-
continue to monitor
Assessment / Plan
-
49 year old female with h/o anxiety, GERD, alcohol induced cirrhosis and prior alcoholic hepatitis who p/w worsening lower back pain, abdominal distention and jaundice.
Abdominal distention/jaundice - known alcohol induced cirrhosis. Has h/o alcoholic hepatitis in 2023. Suspect alcoholic hepatitis. Her presentation is nearly identical to her admission in 2023. She admits to drinking alcohol (glass of wine),
although she seldom drinks. AST/ALT elevation, bili 14.2 on admission. DF < 32, no need for steroids. She c/o significant abdominal distention, distended on exam, non-tender, percussion +ve for fluid. Abdo US yesterday reported no GB
stone/sludge, 11.2 mm CBD, no report of ascites. Clinically she appears to have ascites, will get CT abd/pel. If ascites present, will need diagnostic/therapeutic paracentesis. Temp 101.1 on admission, urine cx in progress. Had lengthy
discussion re: the need for absolute abstinence from alcohol. Ok for diet.
Na 127, bili 13.7, DF 31 today. Will need to continue to monitor. Diet.
Total Time Spent with Patient (in minutes): 35
Subjective
Subjective
Date of Service: July 13, 2025
No events o/n.
Objective
Data Reviewed
Laboratory Data:
Laboratory Results
07/13/25 10:17
Laboratory Results
PT 14.8 Sec (11.4-14.6) H 07/12/25 06:37
INR 1.13 07/12/25 06:37
APTT 30.2 Sec (23.4-35.0) 07/11/25 12:50
Magnesium 1.9 mg/dl (1.6-2.3) 07/13/25 10:17
Total Bilirubin 13.7 mg/dl (0.2-1.3) H 07/13/25 10:17
AST 114 U/L (14-36) H 07/13/25 10:17
ALT 45 U/L (0-35) H 07/13/25 10:17
Alkaline Phosphatase 379 U/L (38-126) H 07/13/25 10:17
Lipase 385 U/L (23-300) H 07/11/25 14:40
Vital Signs and I&O:
Vital Signs
Temp Pulse Resp BP Pulse Ox
99 F 86 21 107/65 97
07/13/25 12:41 07/13/25 12:41 07/13/25 12:41 07/13/25 12:41 07/13/25 12:41
I&O
07/12/25 07/13/25 07/14/25
06:59 06:59 06:59
Intake Total 1030 / 1030 1530 / 1530
Balance 1030 / 1030 1530 / 1530
--- NOTE | 2025-07-13 15:38 | PTCARENOTE ---
Pt c/o lower back pain and requested muscle relaxer, made aware, new order provided, see MAR.
[2025-07-13] MEDS: FLEXERIL 5 MG PO (15:39)
[2025-07-13] MEDS: ROCEPHIN 1000 MG IV (17:40)
[2025-07-13] MEDS: STERILE WATER FOR INJECTION 10 ML IV (17:40)
[2025-07-13 19:49] LABS: Hematocrit 27.2 % (37.0-47.0); Hemoglobin 9.0 g/dL (12.0-16.0); Mean Corp Hgb Conc. 33.1 g/dL (33.0-37.0); Mean Corpuscular Volume 120.4 fL (81.0-99.0); Nucleated Red Blood Cells % 0 %; Platelet Count 265 10^3/uL (130-400); Red Cell Dist. Width 16.1 % (11.5-14.5)
[2025-07-13] MEDS: INDERAL LA PO (20:22)
[2025-07-13] MEDS: REMOVE LIDOCAINE PATCH REMOVE (20:24)
--- NOTE | 2025-07-13 20:30 | PTCARENOTE ---
Pt with automatic BP of 83/56. Manual BP of 94/60. HR 86 on tele. Pt asymptomatic. Pt ordered 2000 dose of Extended Release Propanolol. HSIVA Mercado notified. One time dose of 5 mg of Midodrine ordered. Refer to MAR. Advised to hold 2000
dose of Propanolol. Plan of care ongoing.
[2025-07-14 03:20] VITALS: BP 120/75
[2025-07-14 06:04] VITALS: BMI 20.8
[2025-07-14 07:00] VITALS: BP 113/81
[2025-07-14 08:05] LABS: Ammonia 30 umol/L (9-30)
[2025-07-14] MEDS: VISBIOME 1 CAP PO (08:38)
[2025-07-14] MEDS: FLEXERIL 5 MG PO (08:40)
[2025-07-14] MEDS: DESENEX/MITRAZOL/ZEASORB TOPICAL (08:43)
[2025-07-14] MEDS: LIDOCAINE 4% PATCH TOPICAL (08:43)
[2025-07-14 08:46] LABS: ALT (SGPT) 42 U/L (0-35); AST (SGOT) 106 U/L (14-36); Albumin 2.7 g/dl (3.5-5.0); Alkaline Phosphatase 353 U/L (38-126); Blood Urea Nitrogen 6 mg/dl (7-17); Calcium 8.5 mg/dl (8.4-10.2); Carbon Dioxide 29 mmol/L (22-30); Chloride 102 mmol/L (98-107); Estimated Creatinine Clearance 105 ml/min; Glucose 105 mg/dl (70-99); Magnesium 1.9 mg/dl (1.6-2.3); Potassium 4.0 mmol/L (3.5-5.1); Sodium 137 mmol/L (135-145); Total Protein 5.9 g/dl (6.3-8.2); eGFR > 60.00
--- NOTE | 2025-07-14 09:22 | W.PN.UPDATE ---
Update Note
Progress Note Update
I saw and evaluated the patient. I reviewed the resident�s note and agree with findings and plan as documented in the resident�s note.
No new complaints. Patient still complains of sacral back pain and lower abdominal pain.
Gen: NAD, AAOx3.
Eyes: EOMI, PERRLA, severe scleral icterus.
Neck: supple.
CV: RRR, +S1/S2, no m/r/g.
Resp: CTAB, no rales, wheezes, or rhonchi.
Abd: +BS, soft, mild distention, mild, diffuse, TTP, +hepatomegaly
Skin: No rashes.
Neuro: CN 2-12 intact, non-focal.
Psych: Normal mood and affect.
07/11/25 14:40 Urine Urine Culture - Final
Escherichia coli
07/12/25 15:22 Urine Urine Culture - Final
NO GROWTH
CT A/P: Mild abdominopelvic ascites. Moderate hepatomegaly. Hepatic fatty infiltration. Nodular hepatic margin consistent with history of cirrhosis.
Abd U/S: Severe hepatic steatosis. Negative for cholelithiasis. Nonspecific thickening of the gallbladder wall, possibly reactive. Nonspecific dilatation of the common bile duct up to 11.2 mm. No intraductal stones identified, noting limited
visualization. If there is concern for choledocholithiasis or biliary obstruction, consider further evaluation with MRCP.
Chronic alcoholic cirrhosis:
-with cholestatic pattern of elevated LFTs
-with nonspecific dilatation of CBD
-GI following
-with only mild ascites not enough fluid for Dx/Tx paracentesis
Acute UTI:
-fever on admission and again 11/9PM, no leukocytosis
-Reported dysuria but urinalysis was contaminated with > 30 squamous cells
-cont Rocephin for now, day 4, plan on 7 days abx on d/c
Other problems:
Hyponatremia, resolved s/p Tolvaptan
Hypokalemia, resolved
MSK LBP: cont Lidocaine patch. Would not use Tylenol with cirrhosis/liver dysfunction.
Sinus Tachycardia: cont Propranolol
FULL/SCD
Medically cleared for d/c. I explained to the patient that I believe her fever is transient. I told her that she needs to check her temperature twice a day in the morning and the evening. I also explained to the patient that she needs to see her
primary care physician in 3 to 4 days. Patient states that she lives with her and son so there are people at home to notice if she decompensates and needs to return to the ER. The patient verbally acknowledged understanding of all of these
instructions.
Total time spent on d/c = 35 min. This included today's physical exam, progress note, review of laboratory and diagnostic data, preparation of discharge documents and prescriptions, and discussions about the pt's hospital course and discharge plan
with the patient and other director medical safety involved in the patient's care.
[2025-07-14 11:00] VITALS: BP 112/74
--- NOTE | 2025-07-14 12:15 | CM ---
Patient seen at bedside on . Patient plan is home with no needs. Patient plan is for home with no needs at this time. aware and patient asking for note to return to work. Physician updated. CM will continue to follow for discharge
planning needs.
Plan; home with no needs anticipated.
--- NOTE | 2025-07-14 13:44 | W.PN.HOSP.TC ---
Today's Communication/Plan
-
- discharge
Assessment / Plan
Assessment / Plan
Cholestatic liver pattern due to cirrhosis from prior chronic alcohol abuse:
-Patient's initial presenting complaints were abdominal distention, increasing jaundice in her eyes and all over the body, worsening lower back pain. Had a temp of 101 point admission. Had previous similar complaints in 2018 where she required a
paracentesis.
- Cholestatic liver pattern due to elevated total bilirubin of 13.1, direct bilirubin of 11.2, 2:1 ratio of AST to ALT, alkaline phosphatase 39, lipase of 385
- Physical exam shows distended abdomen with positive fluid wave, icteric sclera and jaundice all over body, with cachectic habitus
- Right upper quadrant abdominal ultrasound done which showed severe hepatic steatosis negative for cholelithiasis, dilatation of common bile duct up to 11.2 mm with no intraductal stones identified. According to an informal consult with
lace mender on 07/11/2025 no ascites was noted.
-complete alcohol cessation education
- Started patient on 2 g sodium diet and continue on discharge.
- Continue home propranolol 60 mg.
- Continue with empiric IV ceftriaxone as a secondary prophylaxis spontaneous bacterial peritonitis
- Ammonia level is 50 but patient has no asterixis or altered mental status. However, she does have cirrhosis but will hold off on lactulose after discussion with GI.
- CT scan shows mild abdominopelvic ascites, moderate hepatomegaly, hepatic fatty, nodular hepatic margin consistent with her history of cirrhosis, will see how GI wants to proceed
- PT/OT ordered
- D/c fluids as we would like to fluid restrict patient
- Follow up with PCP in less than 3 days to get CMP and CBC checked. Gastro follow up in 2 weeks.
Hyponatremia/ hypokalemia:
- resolved
UTI:
- continue on Augmentin 4 days outpatient
Low Back Pain:
- Most likely musculoskeletal as no midspine tenderness or weakness on exam
- Continue with lidocaine 4% patch as instructed and low-dose Tylenol on discharge .
Sinus Tachycardia
-continue [employer] Propranolol (patient did not take this morning, resume now)
DVT PPx SCD
FULL CODE
Anticipated Discharge: 24 - 48 hours
Subjective/Interval History
-
Date of Service: July 14, 2025
No acute overnight events.
Patient is complaining of lower back pain. No abdominal pain, headache, dizziness, nausea, vomiting, diarrhea, abdominal pain, constipation, lightheadedness, syncope, numbness, swelling, weakness, visual changes.
Objective Data
-
Labs:
Laboratory Results
07/14/25
07:43
Sodium 137 D
Potassium 4.0
Chloride 102
Carbon Dioxide 29
BUN 6 L
Creatinine 0.4 L
Glucose 105 H
Calcium 8.5
Total Bilirubin 13.0 H
AST 106 H
ALT 42 H
Alkaline Phosphatase 353 H
Vital Signs:
Vital Signs
Temp Pulse Resp BP Pulse Ox
98.2 F 100 18 112/74 98
07/14/25 11:00 07/14/25 11:59 07/14/25 11:00 07/14/25 11:59 07/14/25 11:00
I&O
07/13/25 07/14/25 07/15/25
06:59 06:59 06:59
Intake Total 1530 / 1530 720 / 720 450 / 450
Balance 1530 / 1530 720 / 720 450 / 450
Review of Systems
-
History Source: Patient
All other systems: Reviewed and negative
Physical Exam
-
General: Cachectic
HEENT: Normocephalic, Atraumatic, Moist Mucous Membranes and Other (Icteric sclera and jaundice present over all over body)
Respiratory: Clear to Auscultation
Cardiac: Regular Rhythm and S1/S2; Negative Murmur, Rub or Gallop
GI: Soft, Nontender, Normal Bowel Sounds, Distended and Other (Positive fluid wave); Negative Organomegaly
Rectal: Deferred by Provider
Musculoskeletal: No Clubbing, No Cyanosis and No Edema
Skin: Warm and Jaundice; Negative Rash
Neuro: AO x 3
Psych: Calm
--- NOTE | 2025-07-14 15:39 | W.DCSUMMARY ---
Discharge Summary
Discharge Data
Date of Admission: 07/11/25
Date of Discharge: 07/14/25
-
Pending Results: No
Hospital Course
Discharging Physician : Dr. Jimmy Gordillo and Dr. Jose Farr
Disposition : Home
Primary care physician : Dr. Heidy Marcano
Principal Discharge diagnosis : Chronic alcoholic cirrhosis, acute UTI, resolved hyponatremia and hypokalemia, lower back pain
Chronic Discharge diagnosis : sinus tachycardia
Hospital Course : Ms. Cristina Morley is a 49 yo woman with hx anxiety, GERD, alcohol related liver disease presents to the ER with worsening lower back pain, abdominal distention and jaundice.
Problem #1:
Chronic alcoholic cirrhosis
Hyponatremia/hypokalemia
- Patient's initial presenting complaints were abdominal distention, icteric sclera as well as jaundice all over the body, and worsening lower back pain. On admission had a temperature of 101 and labs with a elevated total bilirubin of 13.1, direct
bilirubin 11.2, 2:1 ratio of AST ALT, alkaline phosphatase 39, lipase of 385. Physical examination showed a distended abdomen with a positive fluid wave. She had a similar presentation which required a paracentesis in 2023. First right upper
quadrant ultrasound was done which showed severe hepatic steatosis negative for cholelithiasis and dilatation of the common bile duct up to 11.2 mm with no intraductal stones identified. Gastroenterology was consulted and they did a CT scan of the
abdomen pelvis which showed mild abdominal pelvic ascites, moderate hepatomegaly, hepatic fatty liver, nodular hepatic margin consistent with her history of cirrhosis. Since her CT abdomen pelvis showed mild abdominal ascites, there is no reason
for a paracentesis inpatient. Also had sodium level of 124 and potassium level of 2.8 on admission secondary to cirrhosis, nephrology was consulted and advised fluid restriction with 1 dose of Samsca, on discharge her sodium is 137 potassium is 4
both are normalized. Patient was placed on a 2 g sodium diet which I advised to continue on discharge. Her home dose of propranolol 60 mg was continued. PT/OT were ordered and they recommended home discharge. On discharge patient is stable and
afebrile. Advise follow-up with disability counselor in 1 to 2 weeks. Patient has elevated total bilirubin of 13.0, AST 106, ALT 42, alkaline phosphatase 353, ammonia 30 ( normalized from peak of 51) on discharge so advise CBC and CMP with PCP in 2
to 3 days.
Problem #2: Acute UTI
-Urine cultures positive for Escherichia coli. Patient was started on ceftriaxone 1000 mg IV every 24. She had this for 3 days and then she will be transition to stepdown therapy of 4 days of Augmentin.
Problem #3: Chronic lower musculoskeletal back pain
- Continue lidocaine patch
Problem #4: Sinus tachycardia
- Continue home dose propranolol
Important imaging findings :
Right upper quadrant ultrasound on 07/11/2025:
IMPRESSION:
Severe hepatic steatosis.
Negative for cholelithiasis. Nonspecific thickening of the gallbladder wall, possibly reactive.
Nonspecific dilatation of the common bile duct up to 11.2 mm. No intraductal stones identified, noting limited visualization. If there is concern for choledocholithiasis or biliary obstruction, consider further evaluation with MRCP.
Abdominal/pelvis CT on 07/12/2025
IMPRESSION: Mild abdominopelvic ascites. New
Moderate hepatomegaly. New
Hepatic fatty infiltration. Progressed
Nodular hepatic margin consistent with history of cirrhosis. New
Procedure findings :
Discharge Plan
-
Patient Disposition: Home (Routine Discharge)
Discharge Diagnosis/Procedures: Cholestatic liver pattern due to cirrhosis from prior chronic alcohol abuse with electrolyte abnormalities, hyponatremia/hypokalemia, urinary tract infection, lower back pain, sinus tachycardia
Condition: Fair
Diet: 2 Gram Sodium
Activity: No restrictions
Driving Restrictions: As prior to admission
Bathing Restrictions: None
Blood Work: CBC and CMP in < 1 week with PCP.
Specialty Instructions: Weigh Daily- Call MD for wt gain/loss 3 lbs overnight/5 lbs in 1 week
Activity Restrictions/Additional Instructions:
You must see your primary care physician in 3 to 4 days.
Stand Alone Forms: Return to Work
Referrals:
Heidy Marcano CRNP [Family Provider, Family Practice] - in two to three days
Max Tellez MD [Active, Gastroenterology] - in one to two weeks
Additional Discharge Medication Instructions: Please take amoxicillin pot clavulanate tablet ( 1 tablet twice a day spaced 12 hours apart) for 4 days.
Prescriptions:
New
miconazole nitrate [Miconazorb AF] 2 % Powder
1 applic topical BID Qty: 85 0RF
cyclobenzaprine 10 mg Tablet
5 mg PO Q8HPRN PRN (Reason: muscle spasms) Qty: 30 0RF
lidocaine 4 % Adhesive Patch,Medicated
1 patch topical DAILY Qty: 5 0RF
midodrine 5 mg Tablet
5 mg PO TID@0800,1300,1800 Qty: 30 0RF
Lactobac/Bifidobac [Visbiome]
1 cap PO DAILY Qty: 30 0RF
amoxicillin-pot clavulanate 875-125 mg tablet
1 tab PO Q12H 4 Days Qty: 8 0RF
Continued
Centrum Adult 50 Plus 80 mcg Tablet,Chewable
2 tab PO DAILY
furosemide [Lasix] 40 mg Tablet
40 mg PO DAILY
spironolactone 100 mg Tablet
50 mg PO DAILY
propranolol 60 mg Capsule,Extended Release 24 Hr
60 mg PO DAILY
vitamin A 3,000 mcg (10,000 unit) Capsule
3,000 mcg PO DAILY
cholecalciferol (vitamin D3) [Vitamin D3] 25 mcg (1,000 unit) Tablet,Chewable
25 mcg PO DAILY
Discharge Orders:
Discharge Patient (As Directed); Ordered 07/14/25
Ordered By: Jimmy Gordillo
Discharge Date and Time
Discharge Date/Time: 07/14/25 13:05
Print Language: YAKUT
== END 2025-07-14 13:05 | disposition home or self-care (01) | DRG 433 ==
LOC: 3 WEST ACU 17:52
PROVIDERS: Internal Medicine; Nurse Practitioner Gerontology; Physician Assistant; ADMITTING PHYSICIAN Student in an Organized Health Care Education/Training Program; ATTENDING PHYSICIAN Internal Medicine; CONSULT PHYSICIAN Internal Medicine Gastroenterology; CONSULT PHYSICIAN Internal Medicine Nephrology; EMERGENCY PHYSICIAN Student in an Organized Health Care Education/Training Program; FAMILY PHYSICIAN Nurse Practitioner Family
DX: K70.31 Alcoholic cirrhosis of liver with ascites (principal); E87.1 Hypo-osmolality and hyponatremia; N39.0 Urinary tract infection, site not specified; M54.9 Dorsalgia, unspecified; K70.11 Alcoholic hepatitis with ascites; M54.50 Low back pain, unspecified; R14.0 Abdominal distension (gaseous); E87.6 Hypokalemia; K76.0 Fatty (change of) liver, not elsewhere classified; I10 Essential (primary) hypertension; B96.20 Unspecified Escherichia coli [E. coli] as the cause of diseases classified elsewhere; K83.8 Other specified diseases of biliary tract; F10.10 Alcohol abuse, uncomplicated; I95.9 Hypotension, unspecified; F41.9 Anxiety disorder, unspecified; K21.9 Gastro-esophageal reflux disease without esophagitis; D63.8 Anemia in other chronic diseases classified elsewhere; Z79.899 Other long term (current) drug therapy
CPT/HCPCS: 74177; 76700; 80053; 81003; 81015; 82140; 82248; 82533; 83690; 83735; 83930; 83935; 84132; 84295; 84300; 85025; 85610; 85730; 86850; 86900; 86901; 87077; 87086; 87186; 93005; 96361; 96374; 96375; 97110; 97163; 97166; 99285; Q9967